=== PATIENT | male | born 1985 | race Caucasian/White ===

== ENCOUNTER 2016-05-19 05:10 | Emergency (ER) | payer OTHER ==
[2016-05-19 05:19] VITALS: BP 148/89; PULSE 98; TEMP 98.2; BMI 42.5
[2016-05-19] MEDS ORDERED: KETOROLAC TROMETHAMINE 60 MG/2 ML VIAL IM ONE (05:23)
--- NOTE | 2016-05-19 05:27 | PDOC ---
History of Present Illness - General Chief Complaint: Injury Stated Complaint: LT KNEE PAIN Time Seen by Provider: 05/19/16 05:18 History Source: Patient Exam Limitations: No Limitations - History of Present Illness Initial Comments: 05/19/16 05:27 This is a 30-year-old male who comes in complaining of left knee pain. Patient has long history of chronic knee pain is been told by an orthopedist that he needs a knee replacement. 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 Patient denies any other injuries. PAST MEDICAL HISTORY: no significant history PAST SURGICAL HISTORY: no significant history FAMILY HISTORY: no pertinant history SOCIAL HISTORY: Pt lives with family and is employed. MEDICATIONS: reviewed ALLERGIES: As per nursing notes Review of Systems General: No fevers or chills, no weakness, no weight loss HEENT: No change in vision. No sore throat,. No ear pain CardioVascular: No chest pain or shortness of breath Respiratory:No cough, or wheezing. Gastrointestinal: no nausea, vomitting, diarrhea or constipation, No rectal bleeding Genitourinary: No dysuria, hematuria, or frequency Musculoskeletal: No joint or muscle pain or swelling Neurologic: No headache, vertigo, dizziness or loss of consciousness Psychiatric: nor depression Skin: No rashes or easy bruising Endocrine: no increased thirst or abnormal weight change Allergic: no skin or latex allergy All other systems reviewed and normal GENERAL: The patient is awake, alert, and fully oriented, in no acute distress. HEAD: Normal with no signs of trauma. EYES: Pupils equal, round and reactive to light, extraocular movements intact, sclera anicteric, conjunctiva clear. EXTREMITIES: Left knee: There is decreased range of motion secondary to pain and discomfort. There is no erythema, there is some mild swelling. There is no bony tenderness. There is no ligamentous laxity on testing. Neurovascular distal is intact. NEUROLOGICAL: Normal speech, normal gait. PSYCH: Normal mood, normal affect. SKIN: Warm, Dry, normal turgor, no rashes or lesions noted. This is a 30-year-old male who comes in complaining of left knee pain that is chronic but exacerbated recently by his work he says. Patient on exam had no bony tenderness of the knee. There is some discomfort with range of motion. Patient said he has a knee immobilizer already. Patient was told to wear his knee immobilizer and was given prescriptions for Naprosyn and gabapentin. Patient discharged home told to follow-up with his orthopedist. Occurred: reports: just prior to arrival Past History - Past Medical History Allergies/Adverse Reactions: Allergies Allergy/AdvReac Type Severity Reaction Status Date / Time No Known Allergies Allergy Verified 06/04/15 18:02 Home Medications: Ambulatory Orders Gabapentin 400 mg PO DAILY #30 capsule 05/19/16 Ibuprofen [Advil -] 400 mg PO ONCE 05/19/16 Naproxen [Naprosyn -] 500 mg PO BID #14 tablet 05/19/16 Asthma: Yes - Immunization History Td Vaccination: Yes Immunization Up to Date: Yes - Psycho/Social/Smoking Cessation Hx Anxiety: No Suicidal Ideation: No Smoking Status: No Smoking History: Current some day smoker Have you smoked in the past 12 months: Yes Number of Cigarettes Smoked Daily: 0 'Breaking Loose' booklet given: 06/04/15 Hx Alcohol Use: Yes (SOCIAL) Drug/Substance Use Hx: No Substance Use Type: None Hx Substance Use Treatment: No *DC/Admit/Observation/Transfer Diagnosis at time of Disposition: Knee pain Qualifiers: Laterality: left Chronicity: chronic Qualified Code(s): M25.562 - Pain in left knee; G89.29 - Other chronic pain - Discharge Dispostion Disposition: HOME Condition at time of disposition: Stable Admit: No - Patient Instructions Additional Instructions: For the pain take Naprosyn 1 tablet twice a day. Also take gabapentin 1 tablet a day. Call your orthopedist to make an appointment to follow-up. Wear your knee brace for additional comfort or an Jaspal wrap. Return to the emergency department immediately with ANY new, persistent or worsening symptoms. Continue any medications as previously prescribed by your physician. You should follow up with your primary doctor as soon as possible regarding today's emergency department visit. . Please make sure your doctor reviews the results of your emergency evaluation. Thank you for coming to the Emergency Department today for your care. It was a pleasure to see you today. Please note that your evaluation is INCOMPLETE until you follow-up with your doctor.
== END 2016-05-19 05:37 | disposition home or self-care (01) ==
LOC: FER 05:10 → SUPCPDRO 05:10 → FER 05:37
PROC: 3E0234Z Introduction of Serum, Toxoid and Vaccine into Muscle, Percutaneous Approach (ICD-10-PCS; principal; 2016-05-19)
DX: M25.562 Pain in left knee (principal); G89.29 Other chronic pain; X58.XXXA Exposure to other specified factors, initial encounter; Y93.89 Activity, other specified; Y92.9 Unspecified place or not applicable; Y99.0 Civilian activity done for income or pay; F17.210 Nicotine dependence, cigarettes, uncomplicated
CPT/HCPCS: 99282-25

== ENCOUNTER 2019-02-24 23:07 | Emergency (ER) | payer BC, OTHER ==
[2019-02-24 23:23] VITALS: BP 142/78; PULSE 75; TEMP 97.8; BMI 40.8
--- NOTE | 2019-02-24 23:23 | PDOC ---
History of Present Illness - General Chief Complaint: Pain Stated Complaint: CHEST PAIN Time Seen by Provider: 02/24/19 23:17 History Source: Patient Exam Limitations: No Limitations - History of Present Illness Initial Comments: 02/24/19 23:25 This is a 33-year-old male who comes in complaining of discomfort in his left side of his chest and abdomen. Patient has had these symptoms for 2 weeks intermittently and constant x2 days. Patient describes it as a sensation of increased heat or a feeling of increased temperature. Patient said that when he feels the left side of his chest it is actually warmer than the right side of his chest. However when I felt that I could not discern a difference in the temperature of the 2 sides. Patient denies any shortness of breath, nausea, diaphoresis, vomiting. Patient has a history of intermittent tobacco use otherwise denies any other cardiac risk factors. Allergies: as per nursing notes Past Medical History: none Social history: Lives with family. intermittant smoking. No alcohol. No illicit drugs. Surgical history: None General: No fevers or chills, no weakness, no weight loss HEENT: No change in vision. No sore throat,. No ear pain CardioVascular: + chest discomfort. No shortness of breath Respiratory:No cough, or wheezing. Gastrointestinal: no nausea, vomiting, diarrhea or constipation, No rectal bleeding Genitourinary: No dysuria, hematuria, or frequency Musculoskeletal: No joint or muscle pain or swelling Neurologic: No headache, vertigo, dizziness or loss of consciousness Psychiatric: nor depression Skin: No rashes or easy bruising Endocrine: no increased thirst or abnormal weight change Allergic: no skin or latex allergy All other systems reviewed and normal Exam: General: Well-nourished well-developed individual, no acute distress HEENT: Throat: Normal, tonsils normal, no erythema or exudate Neck: Supple, no meningeal signs, no lymphadenopathy Eyes::Pupils equal reactive and round, extraocular motion intact Chest: Nontender to palpation Cardiac: S1-S2 normal, regular rate and rhythm, no murmurs rubs or gallops Respiratory: Lungs clear to auscultation bilateral Abdomen: Soft, nondistended, normal bowel sounds, there is no tenderness on palpation diffusely Extremities: Warm, dry, no cyanosis, clubbing, or edema Skin: No rashes Neuro: Alert and oriented x3, CN II - XII intact, nonfocal exam with normal strength, normal sensation, normal reflexes, normal gait, Psych: Normal mood and affect Assessment and plan: This is a 33-year-old male with some left-sided chest discomfort and a feeling of increased warmth in his left side of his chest. Patient has had symptoms for 2 weeks intermittent and constant x2 days. A work-up was initiated and CBC, comp, EKG and cardiac enzymes were done Past History - Past Medical History Allergies/Adverse Reactions: Allergies Allergy/AdvReac Type Severity Reaction Status Date / Time No Known Allergies Allergy Verified 02/24/19 23:09 Home Medications: Ambulatory Orders NK [No Known Home Medication] 02/24/19 Asthma: Yes - Immunization History Td Vaccination: Yes Immunization Up to Date: Yes - Psycho Social/Smoking Cessation Hx Smoking Status: No Smoking History: Current some day smoker Have you smoked in the past 12 months: Yes Number of Cigarettes Smoked Daily: 0 'Breaking Loose' booklet given: 06/04/15 Hx Alcohol Use: Yes (SOCIAL) Drug/Substance Use Hx: No Substance Use Type: None Hx Substance Use Treatment: No *Physical Exam - Vital Signs Last Vital Signs Temp Pulse Resp BP Pulse Ox 97.8 F 75 17 142/78 99 02/24/19 23:13 02/24/19 23:13 02/24/19 23:13 02/24/19 23:13 02/24/19 23:13 Discharge - Discharge Information Problems reviewed: Yes Clinical Impression/Diagnosis: Chest pain, atypical Condition: Stable Disposition: HOME - Admission No - Follow up/Referral - Patient Discharge Instructions Additional Instructions: It is important that you follow-up with a coordinator mining products. Your work-up here was all normal including a normal cardiogram and cardiac enzymes. Return to the emergency department immediately with ANY new, persistent or worsening symptoms. Continue any medications as previously prescribed by your physician. You should follow up with your primary doctor as soon as possible regarding today's emergency department visit. . Please make sure your doctor reviews the results of your emergency evaluation. Thank you for coming to the Emergency Department today for your care. It was a pleasure to see you today. Please note that your evaluation is INCOMPLETE until you follow-up with your doctor. - Post Discharge Activity
[2019-02-24 23:40] LABS: BASO % 0.7 % (0-2.0); EOS % 1.9 % (0-4.5); HEMATOCRIT 46.1 % (35.4-49); HEMOGLOBIN 15.7 GM/dl (11.7-16.9); LYMPH % 44.4 % (8-40); MCH 30.5 pg (25.7-33.7); MEAN CELL VOLUME 89.6 fl (80-96); MONO % 6.8 % (3.8-10.2); NEUT % 46.2 % (42.8-82.8); PLATELET COUNT 251 K/MM3 (134-434); RBC 5.14 M/mm3 (4.00-5.60); RDW 12.1 % (11.9-15.9); WHITE BLOOD COUNT 7.2 K/mm3 (4.0-10.8)
[2019-02-24 23:49] LABS: ALBUMIN 4.4 g/dl (3.4-5.0); BILIRUBIN,TOTAL 1.2 mg/dl (0.2-1); CALCIUM 8.7 mg/dl (8.5-10); CREATININE 0.8 mg/dl (0.55-1.3); POTASSIUM 4.1 mmol/L (3.5-5.1); TOT PROT 7.5 g/dl (6.4-8.2)
--- NOTE | 2019-02-25 09:43 | EKG ---
Test Reason : Blood Pressure : / mmHG Vent. Rate : 076 BPM Atrial Rate : 076 BPM P-R Int : 148 ms QRS Dur : 088 ms QT Int : 394 ms P-R-T Axes : 047 026 027 degrees QTc Int : 443 ms NORMAL SINUS RHYTHM WITH SINUS ARRHYTHMIA NORMAL ECG NO PREVIOUS ECGS AVAILABLE Confirmed by GAUTAM KRISHNAN, NEPTALI ([id number]) on 02/25/2019 9:43:13 AM Referred By: RUTHY MENDEZ Confirmed By:NEPTALI FLOREZ MD
== END 2019-02-25 00:11 | disposition home or self-care (01) ==
LOC: FER 23:07
DX: R07.89 Other chest pain (principal); F17.210 Nicotine dependence, cigarettes, uncomplicated
CPT/HCPCS: 36415; 80053; 82550; 82553; 84484; 85025; 93005; 99283-25